=== PATIENT | female | born 1985 | race Caucasian/White ===

== ENCOUNTER 2022-08-05 07:26 | Emergency (ER) | payer BC, MEDICAID ==
[2022-08-05] MEDS ORDERED: Sodium Chloride 0.9% 10 ML Syringe FLUSH PRN (07:44)
[2022-08-05] MEDS ORDERED: Sodium Chloride 0.9% 1,000 ML IV ONE (07:45)
[2022-08-05 07:52] LABS: BASOPHILS ABSOLUTE AUTO 0.01 K/uL (0.00-0.20); BASOPHILS PERCENT AUTO 0.2 % (0.0-2.0); EOSINOPHILS ABSOLUTE AUTO 0.29 K/uL (0.00-0.50); EOSINOPHILS PERCENT AUTO 6.8 % (0.0-5.0); HEMATOCRIT 36.8 % (34.0-46.0); HEMOGLOBIN 12.5 g/dL (11.7-15.5); MEAN CORPUSCULAR VOLUME 94.1 fL (84.0-98.0); NEUTROPHILS ABSOLUTE AUTO 2.18 K/uL (1.40-7.00); PLATELET COUNT,PLT 211 K/uL (150-350); RED BLOOD CELL COUNT 3.91 M/uL (3.77-5.09); RED CELL DISTRIBUTION WIDTH 12.3 % (11.2-14.1); WHITE BLOOD CELL COUNT,WBC 4.3 K/uL (4.0-10.2)
[2022-08-05 08:03] LABS: APPEARANCE,URINE CLEAR; BILIRUBIN,URINE NEGATIVE (NEGATIVE); COLOR,URINE YELLOW; GLUCOSE,URINE NEGATIVE (NEGATIVE); KETONES,URINE NEGATIVE (NEGATIVE); LEUKOCYTE ESTERASE,URINE NEGATIVE (NEGATIVE); NITRITE,URINE NEGATIVE (NEGATIVE); OCCULT BLOOD,URINE NEGATIVE (NEGATIVE); PH,URINE 5.5 (5.0-9.0); PROTEIN,URINE NEGATIVE (NEGATIVE); UROBILINOGEN,URINE 0.2 E.U./dL (0.2-1.0)
[2022-08-05 08:08] LABS: ALANINE AMINOTRANSFERASE,ALT 24 U/L (12-78); ALBUMIN 4.1 g/dL (3.4-5.0); ALKALINE PHOSPHATASE 57 IU/L (46-116); ASPARTATE AMNIOTRANSFERASE,AST 16 U/L (15-37); BILIRUBIN TOTAL 0.4 mg/dL (0.2-1.0); BLOOD UREA NITROGEN,BUN 9 mg/dL (7-18); CALCIUM 8.8 mg/dL (8.5-10.1); CARBON DIOXIDE,CO2 25.2 mmol/L (21.0-32.0); CREATININE 0.87 mg/dL (0.51-1.17); EST CRCL DRUG DOSING (CG) 74.18 mL/min; GLUCOSE RANDOM 103 mg/dL (70-99); PROTEIN TOTAL,TP 7.4 g/dL (6.4-8.2)
[2022-08-05 08:14] LABS: ANION GAP 13.5 meq/L (7-15); CHLORIDE,CL 104 mmol/L (98-107); ESTIMATED GFR 87 mL/min (>=60); SODIUM,NA 140 mmol/L (136-145)
[2022-08-05 08:15] LABS: C-REACTIVE PROTEIN < 0.2 mg/dL (<=0.9)
[2022-08-05 08:16] LABS: POTASSIUM,K 2.7 mmol/L (3.5-5.1)
[2022-08-05] MEDS ORDERED: Potassium Chloride 20 MEQ Tab.ER PO ONE (08:16)
[2022-08-05] MEDS ORDERED: Ondansetron 4 MG/2 ML SDV IVPUSH ONE (08:21)
[2022-08-05 10:35] VITALS: BP 129/74; PULSE 80
== END 2022-08-05 10:01 | disposition home or self-care (01) ==
LOC: LL.ED 07:26
DX: R55 Syncope and collapse (principal); E87.6 Hypokalemia
CPT/HCPCS: 36415; 80053; 81003; 81025; 85025; 86140; 96361; 96374; 99284; 99284-25; A9270-GY; J2405; J7030